=== PATIENT | female | born 1940 | race Caucasian/White ===

== ENCOUNTER 2016-04-09 11:53 | Day surgery (SDC) | payer OTHER ==
[2016-04-09] MEDS ORDERED: METOPROLOL TARTRATE 5 MG/5 ML INJ IVP ONE (12:30)
--- NOTE | 2016-04-09 15:58 | EPPROC ---
Electrophysiology Procedure Note: Procedure: Fluoroscopy Indicaiton: COncern for lead dislodgement Procedure: Pt placed under fluoroscopy. No lead dislodgement or fracture noted. Conclusion: No lead dislodgement or fracture Patient Problems: Problems Problem Status Diagnosed Acute ischemic stroke Acute Pacemaker Acute Palpitations Acute
--- NOTE | 2016-04-10 09:20 | ECHO ---
[id number] + + [address] : : [place] [address] : : [phone] + + Adult Echocardiographic Report + + :Name: ALLYSON LOMELI LStudy Date: 04/09/2016 01:24 PM BP: 141/87 mmHg : : Hospital Admission Number: [id number] Lo cation: CVC: :: 1940 Gender: Female Height: 62 in : :Age: 75 yrs Race: Weight: 15 9 lb : :Reason For Study: arrhythmia : : BSA: 1.7 m eters2 : :History: MVR,pacer : + + MMode/2D Measurements & Calculations IVSd: 0.89 cm RVDd: 3.4 cm FS: 28.7 % Ao root diam: LVPWd: 0.97 cm LVIDd: 4.1 cm EDV(Teich): 72.5 ml2.7 cm LVIDs: 2.9 cm ESV(Teich): 32.1 ml EF(Teich): 55.7 % LVOT diam: 1.9 cm LVLd ap4: 7.7 cm SV(MOD-sp4): LVOT area: EDV(MOD-sp4): 48.0 ml 2.8 cm2 97.0 ml LVLs ap4: 7.2 cm ESV(MOD-sp4): 49.0 ml EF(MOD-sp4): 49.5 % Normal Measurement Values: + + :LVIDd (3.5-5.7cm) IVSd (0.6-1.1cm) LVPWd (0.6-1.1cm) Aortic Root (2.0-3.7cm)Left Atrium (1.5-4.0cm): :LV Vol(d) (76-115ml) LV Vol(s) (29-48ml) Ejec Fraction (50-65%)PV Adiel (0.6- 1.2m/s) TV Adiel (0.4-1.0m/s) : :MV E Adiel (0.8-1.0m/s)MV A Adiel (0.3-1.0m/s)LVOT Adiel (0.7-1.2m/s) Asc Ao Adiel ( 0.9-1.8m/s) : + + Doppler Measurements & Calculations MV V2 max: MV P1/2t max adiel: Ao V2 max: AI max adiel: 186.2 cm/sec 189.1 cm/sec 125.5 cm/sec 439.4 cm/sec MV max PG: MV P1/2t: 61.6 msec Ao max PG: AI max P.9 mmHg MVA(P1/2t): 3.6 cm2 6.3 mmHg 77.2 mmHg MV V2 mean: MV dec slope: NINFA(V,D): 2.4 cm2AI dec slope: 128.9 cm/sec 292.0 cm/sec2 MV mean P.5 cm/sec2 AI P1/2t: 7.4 mmHg 440.8 msec MV V2 VTI: 27.2 cm LV V1 max: PA V2 max: TR max adiel: 107.6 cm/sec 96.4 cm/sec 295.7 cm/sec LV V1 max PG: PA max P.7 mmHg TR max P.6 mmHg 35.0 mmHg RAP systole: 15.0 mmHg RVSP(TR): 50.0 mmHg Left Ventricle The left ventricle is normal in size. There is normal left ventricular wall thickness. Diastolic Function Indeterminate due to MVR.. Ejection Fraction = 50-55%. Left ventricular systolic function is normal. Septal bounce noted. There is significant apical wall akinesis. Right Ventricle The right ventricle is normal in size and function. There is a pacemaker lead in the right ventricle. Atria The Left Atrial Volume is 36 ml/m2. The left atrium is mildly dilated. Right atrial size is normal. A dilated inferior vena cava suggests increased right atrial pressure. The lack of respiratory variation in the inferior vena cava diameter is noted. Mitral Valve Mean gradient across the MVR 7mmHg. There is no mitral regurgitation noted. There is a bioprosthetic mitral valve. Tricuspid Valve The tricuspid valve is normal in structure and function. There is no tricuspid stenosis. There is moderate to severe tricuspid regurgitation. Right ventricular systolic pressure is 50mmHg. There is Doppler evidence for moderate pulmonary hypertension. Aortic Valve The aortic valve is trileaflet. There is no aortic stenosis. Moderate aortic regurgitation. Pulmonic Valve The pulmonic valve is normal in structure and function. trace to mild pulmonic valvular regurgitation. Great Vessels The aortic root is normal size. Pericardium/Pleural trivial pericardial effusion. Conclusion A two-dimensional transthoracic echocardiogram with M-mode and Doppler was performed. Diastolic Function Indeterminate due to MVR.. Left ventricular systolic function is normal. Ejection Fraction = 50-55%. Septal bounce noted. The Left Atrial Volume is 36 ml/m2. The left atrium is mildly dilated. A dilated inferior vena cava suggests increased right atrial pressure. The lack of respiratory variation in the inferior vena cava diameter is noted. There is a bioprosthetic mitral valve. Mean gradient across the MVR 7mmHg. There is moderate to severe tricuspid regurgitation. Right ventricular systolic pressure is 50mmHg. There is Doppler evidence for moderate pulmonary hypertension. Moderate aortic regurgitation. trace to mild pulmonic valvular regurgitation. trivial pericardial effusion. There is significant apical wall akinesis. Final Reading Physician: Melo Osman signed on 04/10/2016 09:19 AM Ordering Physician: Coby Oates Performed By: Gabriella Segal
== END 2016-04-09 15:51 | disposition home or self-care (01) ==
LOC: FCATH 11:53
PROVIDERS: ATTEND Internal Medicine Cardiovascular Disease
PROC: 4B02XSZ Measurement of Cardiac Pacemaker, External Approach (ICD-10-PCS; principal; 2016-04-09)
PROC: B5161ZZ Fluoroscopy of Right Subclavian Vein using Low Osmolar Contrast (ICD-10-PCS; principal; 2016-04-09)
PROC: B2141ZZ Fluoroscopy of Right Heart using Low Osmolar Contrast (ICD-10-PCS; principal; 2016-04-09)
DX: Z45.018 Encounter for adjustment and management of other part of cardiac pacemaker (principal); Z95.3 Presence of xenogenic heart valve; I10 Essential (primary) hypertension; I25.10 Atherosclerotic heart disease of native coronary artery without angina pectoris

== ENCOUNTER → 2016-04-09 | Outpatient (CLI) | payer OTHER | LOC: BHFA 10:00 | PROVIDERS: ATTEND Internal Medicine Cardiovascular Disease | DX: Z95.0 Presence of cardiac pacemaker (principal) ==

== ENCOUNTER 2016-07-09 16:27 | Observation (INO) | payer OTHER ==
[~2016-07-09 16:27] MED LIST: BACITRACIN IRRIGATION/NS 50,000 UNITS/1,000 ML BTL IRR ONE; DIAZEPAM 5 MG TAB PO ONE; NS 1,000 ML IV ONE; diphenhydrAMINE 25 MG CAP PO ONE
[2016-07-09] MEDS ORDERED: VANCOMYCIN HCL/NORMAL SALINE 250 ML IV ONE (16:30)
--- NOTE | 2016-07-09 16:35 | CPEKG ---
Heart Rate: 81 RR Interval: 741 P-R Interval: 213 QRSD Interval: 134 QT Interval: 424 QTC Interval: 493 P [place]: 0 QRS [place]: -80 T Wave [place]: 111 EKG Severity - ABNORMAL ECG - EKG Impression: ATRIAL-VENTRICULAR DUAL-PACED RHYTHM Electronically Signed By: Victor M Miles 09-Jul-2016 20:40:33
[2016-07-09 17:15] LABS: % IMMATURE GRANULYOCYTES 0.2 % (0.0-1.1); ABSOLUTE IMMATURE GRANULOCYTES 0.02 10^3/uL (0.00-0.10); ADD DIFF? NO; ADD MORPH? NO; ADD SCAN? NO; ATYPICAL LYMPHOCYTE FLAG 20 (0-99); FRAGMENT RBC FLAG 0 (0-99); HEMATOCRIT 39.3 % (38.0-47.0); HEMOGLOBIN 12.9 g/dL (12.6-16.3); LEFT SHIFT FLG 0 (0-99); LIPEMIA HEMOLYSIS FLAG 80 (0-99); MEAN CELL HEMOGLOBIN 29.9 pg (27.9-34.1); MEAN CELL HEMOGLOBIN CONCENTR. 32.8 g/dL (32.4-36.7); PLATELET CLUMPS FLAG 10 (0-99); PLATELET COUNT 187 10^3/uL (150-400); RED BLOOD CELL COUNT 4.32 10^6/uL (4.18-5.33); RED CELL DISTRIBUTION WIDTH 13.7 % (11.5-15.2)
[2016-07-09 17:19] LABS: ANION GAP 9 mEq/L (8-16); CALCIUM 9.5 mg/dL (8.5-10.4); CARBON DIOXIDE 25 mEq/l (22-31); CHLORIDE 103 mEq/L (97-110); CREATININE 0.6 mg/dL (0.6-1.0); GLOMERULAR FILTRATION RATE > 60; GLUCOSE 100 mg/dL (70-100); POTASSIUM 4.2 mEq/L (3.5-5.2); SODIUM 137 mEq/L (134-144)
[2016-07-09 17:26] LABS: INR 1.03 (0.83-1.16); PROTIME(PATIENT) 13.4 SEC (12.0-15.0)
[2016-07-09] MEDS ORDERED: LIDOCAINE 1% 30 ML SDV ONE (17:26)
[2016-07-09] MEDS ORDERED: fentaNYL 100 MCG/2 ML INJ ONE (17:27)
[2016-07-09] MEDS ORDERED: MIDAZOLAM 2 MG/2 ML VIAL ONE ×3 (17:27→19:49)
[2016-07-09] MEDS ORDERED: LIDO/EPI 1% **for epidural** 30 ML SDV ONE (17:28)
[2016-07-09] MEDS ORDERED: BUPIVACAINE 0.5% 30 ML SDV ONE (17:28)
[2016-07-09] MEDS ORDERED: ONDANSETRON 4 MG/2 ML VIAL IVP PRN (20:35)
[2016-07-09] MEDS ORDERED: ACETAMINOPHEN 325 MG TAB PO PRN (20:35)
--- NOTE | 2016-07-09 21:10 | CPEKG ---
Heart Rate: 63 RR Interval: 952 P-R Interval: 204 QRSD Interval: 130 QT Interval: 440 QTC Interval: 451 P [place]: 0 QRS [place]: 261 T Wave [place]: 234 EKG Severity - ABNORMAL ECG - EKG Impression: ATRIAL-VENTRICULAR DUAL-PACED COMPLEXES Electronically Signed By: Victor M Miles 10-Jul-2016 16:58:01
[2016-07-09] MEDS ORDERED: METOPROLOL TARTRATE 50 MG TAB ONE (21:27)
[2016-07-09] MEDS ORDERED: amLODIPine BESYLATE 5 MG TAB ONE (21:28)
--- NOTE | 2016-07-09 21:28 | CPIP ---
[f rep st] INVASIVE CARDIAC PROCEDURE DATE OF PROCEDURE: 07/09/2016 PROCEDURE PERFORMED: 1. Explant of a Biotronik Evia DR pulse generator, serial #[id number]. 2. Capping of a failed RV ventricular lead, model #1488TC-52, serial #[id number], date of implant was 10/27/2002, capped 07/09/2016. 3. Temporary wire placement for intermittent asystole from a right groin femoral vein access. 4. Replacement of a new right ventricular lead with a Biotronik Solia S 53, serial #[id number]. 5. Implant of a new dual-chamber pulse generator, Biotronik Etrinsa 8 DR-T, serial #[id number]. INDICATIONS FOR PROCEDURE: Intermittent near syncope with documented failure of capture in the RV i n a patient with a history of complete heart block, prior mitral valve replacement surgery, who is a ctually pacer dependent. PROCEDURE IN DETAIL: After informed consent was obtained and n.p.o. status was confirmed, the regio n of the right groin was cleaned, prepped and draped in sterile fashion. The region of the left sub clavicular fossa was cleaned, prepped and draped and draped in sterile fashion. Approximately 15 cc of 1% lidocaine were utilized for local anesthesia. A #15 blade was used to sharply incise the ski n. Electrocautery and local pressure were used for hemostasis. Sharp and blunt dissection were used to expose the original pulse generator. As we were freeing the device from the pocket, it was note d the patient had intermittent noncapture of the right ventricle for approximately 4 seconds. I, the refore, elected to proceed with emergency placement of a temporary pacer wire. We anesthetized the right groin with 10 cc of 1% lidocaine. A 6-Pakistani sheath was placed. Using the modified Seldinger technique, a temporary pacer wire, balloon tipped and flow directed, was then advanced under direct fluoroscopic guidance and carefully manipulated in the RV apex and tested; it was found to have a lo w threshold. It was placed asynchronous so we could continue to do electrocautery with V pacing at a rate of 60. Device was explanted from the pocket and it was noted that we could not detect atrial a ctivity in the atrium; however, we were able to capture at a voltage of 1.8 with a lead impedance of 420 ohms. We then hooked up to the chronic RV lead, again placed 10/27/2002 under the care of Dr. Yanira woodruff, and noted that, with intermittent position of the lead, there was failure of the device and lead with complete noncapture when we were pacing at a rate that was faster than the temporary pacer , which was turned down and switched to a demand mode for purposes of diagnostics of the RV lead. I t was clear that this lead was not functional and, therefore, it was capped. The patient was placed in Trendelenburg. An 18-gauge Cook needle was used to gain access to the left subclavian vein. A Provident Link Glidewire was used to place a wire into the inferior vena cava. Initially a 5-Pakistani dilato r, then a 6-Pakistani peel-away sheath was carefully advanced over the wire. The dilator and wire were removed. The new ventricular lead was manipulated with care into RV apex and was screwed into the low interventricular septum and tested, found to have a threshold of 0.6 V at 0.4 milliseconds, with lead impedance of 636 ohms. The paced R-waves, which was very close of course to the new lead, were over 20, but obviously there is no intrinsic activity in this patient because she is truly pacer de pendent. The new lead was sutured in place with 0 silk after the peel-away sheath was removed. The new device was brought to the table. The atrial lead was placed in the upper pole lead housing. The setscrew firmly applied. Procedure was repeated for the RV lead. The device was sutured into place in the pocket after it was appropriately flushed and checked for bleeding. Dstat was used to prevent any oozing. The skin was then closed with 3-layer 2-0, 3-0 Vicryl repair followed by Monocryl subcu ticular stitch. Excellent wound edge apposition and hemostasis were documented. The device was set with an output which was temporally purposely high in the RV in the event that the RV lead became d islodged and then the temporary wire was carefully removed after the balloon was deflated. The patie nt will be taken to the post cath recovery unit and good and stable condition with a new ventricular lead, chronic atrial lead and a new dual-chamber pulse generator. /[id number]/MODL
[2016-07-09] MEDS ORDERED: amLODIPine BESYLATE 5 MG TAB PO ONE (21:30)
[2016-07-09] MEDS: METOPROLOL TARTRATE 25 MG TAB PO SCH (21:48)
[2016-07-10 05:26] LABS: % IMMATURE GRANULYOCYTES 0.4 % (0.0-1.1); ABSOLUTE IMMATURE GRANULOCYTES 0.04 10^3/uL (0.00-0.10); ADD DIFF? NO; ADD MORPH? NO; ADD SCAN? NO; ATYPICAL LYMPHOCYTE FLAG 0 (0-99); FRAGMENT RBC FLAG 0 (0-99); HEMATOCRIT 36.4 % (38.0-47.0); HEMOGLOBIN 11.6 g/dL (12.6-16.3); LEFT SHIFT FLG 0 (0-99); LIPEMIA HEMOLYSIS FLAG 80 (0-99); MEAN CELL HEMOGLOBIN 29.5 pg (27.9-34.1); MEAN CELL HEMOGLOBIN CONCENTR. 31.9 g/dL (32.4-36.7); MEAN CELL VOLUME 92.6 fL (81.5-99.8); MEAN PLATELET VOLUME 10.7 fL (8.7-11.7); PLATELET CLUMPS FLAG 0 (0-99); PLATELET COUNT 187 10^3/uL (150-400); RED BLOOD CELL COUNT 3.93 10^6/uL (4.18-5.33)
[2016-07-10 05:39] LABS: ANION GAP 8 mEq/L (8-16); CARBON DIOXIDE 24 mEq/l (22-31); CHLORIDE 103 mEq/L (97-110); CREATININE 0.6 mg/dL (0.6-1.0); GLOMERULAR FILTRATION RATE > 60; GLUCOSE 95 mg/dL (70-100); POTASSIUM 4.1 mEq/L (3.5-5.2); SODIUM 135 mEq/L (134-144)
[2016-07-10] MEDS ORDERED: LEVOTHYROXINE 50 MCG TAB PO SCH (06:00)
[2016-07-10] MEDS ORDERED: ENALAPRIL MALEATE 10 MG TAB PO SCH (09:00)
[2016-07-10] MEDS ORDERED: OMEGA-3 FATTY ACIDS 1,000 MG CAP PO SCH (09:00)
[2016-07-10] MEDS ORDERED: ATORVASTATIN CALCIUM 10 MG TAB PO SCH (09:00)
[2016-07-10] MEDS ORDERED: ASPIRIN 325 MG TAB PO SCH (09:00)
[2016-07-10] MEDS: METOPROLOL TARTRATE 25 MG TAB PO SCH (09:49)
--- NOTE | 2016-07-10 10:00 | CPEKG ---
Heart Rate: 71 RR Interval: 845 P-R Interval: 246 QRSD Interval: 130 QT Interval: 444 QTC Interval: 483 P [place]: 0 QRS [place]: 237 T Wave [place]: 259 EKG Severity - ABNORMAL ECG - EKG Impression: ATRIAL-VENTRICULAR DUAL-PACED RHYTHM Electronically Signed By: Victor M Miles 10-Jul-2016 16:58:07
[2016-07-10 10:08] VITALS: BP 143/69; PULSE 80; RESP 21; TEMP 98.3; O2SAT 91
--- NOTE | 2016-07-10 10:22 | SOAPPROG ---
SOAP Progress Note Assessment/Plan: Assessment: Cardiology ([facility], stone unloader for ) 1. Near-syncope 2/2 RV lead non-capture. 2. Dual chamber PPM s/p RV lead revision (capping of old RV lead, new RV lead), generator swap with new Biotronik device. EKG today shows av dual paced rhythm. CXR is negative for pneumothorax. 3. 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 4. History of mitral valve replacement. 5. CAD w/ known LAD aneurysm. 6. History of left frontal CVA in 2013. 7. Hyperlipidemia. 8. HTN. Plan: 1. Discharge to home today. Post-pacemaker precautions discussed. 2. Continue home medications. 3. Pacer interrogation, wound check, and follow up with [facility] in one week. Subjective: No complaints overnight, patient is feeling much better. Left pectoral incision looks good, well-approximated without oozing or erythema, mildly edematous. She denies any fever or chills overnight. Pacer precautions discussed. Objective: Vital Signs Temp Pulse Resp BP Pulse Ox 36.8 C 80 21 H 143/69 H 91 L 07/10/16 10:07 07/10/16 10:07 07/10/16 10:07 07/10/16 10:07 07/10/16 10:07 Laboratory Results 07/10/16 04:14 07/10/16 04:14 07/09/16 07/10/16 07/11/16 05:59 05:59 05:59 Intake Total 1650 Output Total 1 Balance 1649 PT 13.4 SEC (12.0-15.0) 07/09/16 17:00 INR 1.03 (0.83-1.16) 07/09/16 17:00 - Time Spent With Patient Time Spent With Patient: 40 minutes spent coordinating care, physical exam, and documentation. - Pending Discharge Pending Discharge Within 24 Hours: Yes Pending Discharge Date: 07/11/16 Pending Discharge Time: 11:00 Physical Exam - Physical Exam General Appearance: WD/WN, alert, no apparent distress Respiratory: chest non-tender, lungs clear, normal breath sounds Cardiac/Chest: normal peripheral pulses, regular rate, rhythm Neuro/Psych: no motor/sensory deficits, alert, normal mood/affect, oriented x 3 ICD10 Worksheet Patient Problems: Problems Problem Status Onset Acute ischemic stroke Acute Pacemaker Acute Palpitations Acute
--- NOTE | 2016-07-10 11:56 | GDS ---
[f rep st] DISCHARGE SUMMARY PRIMARY CLINICAL NUTRITIONIST: Dr. Elías Mcintyre. DISCHARGE DIAGNOSES: 1. Near syncope secondary to right ventricular lead noncapture. 2. Dual-chamber permanent pacemaker, status post RV lead revision and replacement, along with a pul se generator swap. 3. Pacemaker dependent secondary to underlying complete heart block. 4. History of mitral valve replacement. 5. 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 6. History of left frontal cerebrovascular accident in 2013. 7. Hyperlipidemia. 8. Hypertension. HOSPITAL PROCEDURES: 1. Explantation of old Biotronik Evia DR pulse generator. 2. Capping of old right ventricular lead. 3. Temporary pacer wire placement in the right femoral vein access. 4. Implantation of new right ventricular lead, with [employer] Solia S53. 5. Implantation of new dual-chamber pulse generator with Biotronik Etnolberto 8 ROSI. HOSPITAL COURSE: The patient is a very pleasant 76-year-old female with underlying complete heart b lock and dual-chamber permanent pacemaker, coronary artery disease, history of cerebrovascular accid ent, multiple cardiovascular risk factors, who was admitted electively yesterday by her primary card iologist, Dr. Mcintyre, for episodes of near syncope that were attributed to noncapture of her preexis ting right ventricular lead. She was taken to the photographic laboratory supervisor yesterday, and ultimately had her old ri ght ventricular lead capped, a new right ventricular lead implanted, and a new pulse generator impla nted as well. There were no complications with the procedure. Please see Dr. Mcintyre's dictated pro cedure report for further details. The patient has done well overnight, and has no complaints this morning. She feels much better than she did coming into the hospital. Her device has been interrogated by the [employer] wire rope sales representative this morning, and all device parameters are normal with proper capture of her new right ventricular lead. A 12-lead EKG this morning shows an AV dual paced rhythm. Immediate post procedure and ches t x-ray this morning shows normal lead placement without evidence of pneumothorax. LABORATORY STUDIES: CBC remarkable for a slight drop in hemoglobin and hematocrit to 11.6 and 36.4 respectively, with normal chemistry panel. Her vital signs have been stable overnight. She will be discharged from the hospital today in good condition. DISCHARGE MEDICATIONS: These remain the same as home medications: Atorvastatin 10 mg p.o. daily. Aspirin 325 mg p.o. daily. Enalapril 10 mg p.o. daily. Ardara-3 fatty acids 1000 mg p.o. daily. Me toprolol tartrate 25 mg p.o. twice daily. Levothyroxine 50 mcg p.o. daily. Ferrous sulfate 325 mg p.o. every other day. FOLLOWUP INSTRUCTIONS: The patient will be discharged to home today. We did discuss post pacemaker precautions including limitation of arm movement below the level of the shoulder, and strict probat ion of submerge of her left pectoral wound. She will remain on the same home medications as above. She already has followup scheduled, according to her, on July 14 in the [facility], where I assume her device will be interrogated and her wound will be checked. /[id number]/MODL
== END 2016-07-10 13:26 | disposition home or self-care (01) ==
LOC: FCATH 16:27 → F2W 20:35
PROVIDERS: ADMIT Internal Medicine Interventional Cardiology; ATTEND Internal Medicine Cardiovascular Disease
PROC: 02WA3MZ Revision of Cardiac Lead in Heart, Percutaneous Approach (ICD-10-PCS; principal; 2016-07-09)
PROC: 0JH606Z Insertion of Pacemaker, Dual Chamber into Chest Subcutaneous Tissue and Fascia, Open Approach (ICD-10-PCS; principal; 2016-07-09)
PROC: 0JPT0PZ Removal of Cardiac Rhythm Related Device from Trunk Subcutaneous Tissue and Fascia, Open Approach (ICD-10-PCS; principal; 2016-07-09)
DX: T82.118A Breakdown (mechanical) of other cardiac electronic device, initial encounter (principal); I44.2 Atrioventricular block, complete; Z95.3 Presence of xenogenic heart valve; I10 Essential (primary) hypertension; I25.10 Atherosclerotic heart disease of native coronary artery without angina pectoris; Z86.73 Personal history of transient ischemic attack (TIA), and cerebral infarction without residual deficits; Z79.01 Long term (current) use of anticoagulants; Z88.0 Allergy status to penicillin; Z87.891 Personal history of nicotine dependence; E03.9 Hypothyroidism, unspecified; E78.5 Hyperlipidemia, unspecified; Y71.2 Prosthetic and other implants, materials and accessory cardiovascular devices associated with adverse incidents
CPT/HCPCS: 33218; 33228; 71010; 71020; 93005; A4649; C1769; C1785; C1898; J2250; J3010; J3370

== ENCOUNTER → 2016-11-15 | Outpatient (CLI) | payer OTHER ==
[~2016-11-15] MED LIST changes: -BACITRACIN IRRIGATION/NS 50,000 UNITS/1,000 ML BTL IRR ONE; -DIAZEPAM 5 MG TAB PO ONE; +IOPAMIDOL (ISOVUE-300) 100 ML BTL ONE; -NS 1,000 ML IV ONE; -diphenhydrAMINE 25 MG CAP PO ONE
== END ==
LOC: FIMAGING 10:22
PROVIDERS: ATTEND Internal Medicine Interventional Cardiology
DX: K76.89 Other specified diseases of liver (principal); R91.8 Other nonspecific abnormal finding of lung field; R16.1 Splenomegaly, not elsewhere classified; N28.1 Cyst of kidney, acquired; K44.9 Diaphragmatic hernia without obstruction or gangrene; I51.7 Cardiomegaly
CPT/HCPCS: 71260; 74160; Q9967

== ENCOUNTER → 2017-02-27 | Outpatient (CLI) | payer OTHER | LOC: SBRMNEURO 21:26 | PROVIDERS: ATTEND Psychiatry & Neurology Sleep Medicine | DX: G47.33 Obstructive sleep apnea (adult) (pediatric) (principal) ==

== ENCOUNTER → 2017-10-04 | Outpatient (CLI) | payer OTHER | LOC: FIMAGING 10:23 | PROVIDERS: ATTEND Family Medicine | DX: N28.1 Cyst of kidney, acquired (principal); R91.8 Other nonspecific abnormal finding of lung field; I27.20 Pulmonary hypertension, unspecified; I51.7 Cardiomegaly; K44.9 Diaphragmatic hernia without obstruction or gangrene | CPT/HCPCS: 71250; 74160; Q9967; 82565-PO ==